=== PATIENT | female | born 1985 | race Caucasian/White ===

== ENCOUNTER 2019-04-06 23:44 | Observation (INO) ==
[2019-04-07] MEDS ORDERED: DUONEB (A & A) INH ONE ×3 (00:09→04:34)
[2019-04-07] MEDS ORDERED: NS 500 ML IV ONE (00:09)
[2019-04-07 02:23] LABS: BASO# 0.03 X1000 (0.0-0.2); BASO% 0.1 % (0.0-0.8); EOS# 0.03 X1000 (0.0-0.7); EOS% 0.1 % (0.0-10.0); HEMATOCRIT 45.1 % (37.0-47.0); HEMOGLOBIN 15.2 g/dL (12.0-16.0); IMM GRAN% 0.4 % (0.0-0.5); LYMPH# 1.03 X1000 (1.2-3.4); LYMPH% 4.4 % (20.5-51.1); MCH 33.6 PG (27-31); MCHC 33.7 g/dL (33-37); MCV 99.6 FL (81-99); MONO# 0.78 X1000 (0.11-0.59); MONO% 3.3 % (1.7-9.3); MPV 9.1 FL (7.4-10.4); NEUT# 21.42 X1000 (1.4-6.5); NEUT% 91.7 % (42.2-75.2); PLT 238 X1000 (130-400); RBC 4.53 XMIL (4.2-5.4); RDW 12.7 % (11.5-14.5); WBC 23.39 X1000 (4.8-10.8)
[2019-04-07 02:53] LABS: AGAP 18; ALBUMIN 4.8 g/dL (3.5-5.0); ALKALINE PHOSPHATASE 50 U/L (32-104); BUN 8 mg/dL (8-22); CALCIUM 9.7 mg/dL (8.8-10.2); CHLORIDE 103 mmol/L (98-107); COSMO 277; CREATININE 0.6 mg/dL (0.5-0.9); ESTIMATED GFR > 60; GLUCOSE 87 mg/dL (70-104); GOT 32 U/L (10-30); GPT 22 U/L (10-36); MAGNESIUM 1.9 mg/dL (1.5-2.7); SODIUM 140 mmol/L (136-145); TCO2 20 mmol/L (25-35); TOTAL PROTEIN 8.1 g/dL (6.3-8.3)
[2019-04-07 03:35] LABS: INFLUENZA A NEGATIVE (NEGATIVE); INFLUENZA B NEGATIVE (NEGATIVE)
[2019-04-07 03:35] LABS: INR 0.86; PROTIME 12.1 Seconds (11.0-16.0)
[2019-04-07 03:36] LABS: PTT 22.4 Seconds (22.3-41.8)
[2019-04-07] MEDS ORDERED: SOLU-MEDROL IV ONE (03:36)
[2019-04-07] MEDS ORDERED: ROCEPHIN 1 GM in NS 50 ML IV ONE (03:36)
[2019-04-07] MEDS ORDERED: NS 1,000 ML IV ONE ×2 (04:42→05:43)
--- NOTE | 2019-04-07 04:42 | PROVIDER DOCUMENTATION ---
This chart was entered by Chasity Solo Scribe, acting as scribe for Ishmael Roblero MD. HPI-Respiratory General - General Chief Complaint: Shortness of Breath Stated Complaint: SOB Time Seen by Provider: 04/07/19 00:05 Source: patient Allergies/Adverse Reactions: Patient Allergies Allergy/AdvReac Type Severity Reaction Status Date / Time No Known Allergies Allergy Verified 04/06/19 23:49 Home Medications: Home Medication List Medication Instructions Recorded Confirmed Last Taken Type [place] Carbon[place] 300 mg PO DAILY 01/14/16 10/07/17 Unknown History Acyclovir [Zovirax] 400 mg PO TID 10/07/17 10/07/17 10/06/17 19:00 History 400mg Alprazolam 1 mg PO BID 10/07/17 10/07/17 10/07/17 19:00 History Bupropion HCl 200 mg PO DAILY 10/07/17 10/07/17 10/06/17 07:00 History 200mg Bupropion [Wellbutrin] 100 mg PO DIRECTED 10/07/17 10/07/17 10/06/17 14:00 History 100mg Gabapentin 300 mg TID 10/07/17 10/07/17 10/06/17 19:00 History 300mg Lamotrigine 25 mg PO HS 10/07/17 10/07/17 10/05/17 19:00 History 25mg Lisdexamfetamine Dimesylate 20 mg PO DAILY 10/07/17 10/07/17 10/06/17 14:00 History [Vyvanse] 20mg Lisdexamfetamine Dimesylate 50 mg PO DAILY 10/07/17 10/07/17 10/06/17 09:00 Hi story [Vyvanse] 50mg [place] Carbonate 10/07/17 10/07/17 Unknown History Tramadol HCl 50 mg PO TID PRN 10/07/17 10/07/17 10/06/17 19:00 History 50mg Trazodone HCl 50 mg PO HS 10/07/17 10/07/17 Unknown History Cephalexin [Keflex] 500 mg PO 4XDAY 3 Days #12 capsule 10/08/17 Unknown Rx Ibuprofen 600 mg PO Q6H PRN PRN 30 Days #60 10/08/17 Unknown Rx tablet Oxycodone/APAP 10 mg/325 mg 1 each PO Q4H PRN PRN #40 tablet 10/08/17 Unknown Rx [Percocet-10] Promethazine [Phenergan] 25 mg PO Q6H PRN PRN 10 Days #20 10/08/17 Unknown Rx tablet Methylprednisolone [Medrol Dosepak] 4 mg PO DIRECTED #1 pkg 01/17/18 Unknown Rx Fluticasone 50 Mcg Nasal [place] 1 spray INTRANASAL DAILY #1 bottle 12/18/18 Unknown Rx [Flonase] Loratadine/Pse E.r. 24 Hr 1 ea PO DAILY #20 tab 12/18/18 Unknown Rx [Claritin-D 24 Hr] Methylprednisolone [Medrol Dosepak] 4 mg PO DIRECTED #1 pkg 12/18/18 Unknown Rx Naproxen Sodium [Anaprox Ds] 550 mg PO Q12H PRN PRN #20 tab 12/18/18 Unknown Rx - History of Present Illness-Resp Nature of Presenting Problem: Pt is 33/F presenting to ED w/ SOB and cough that is painful since about 3pm today. Pt sts that she was smoking her last cigarette at work at onset. Severity in ED: reports: moderate Onset/Duration: reports: other (8 hrs ago) Timing: reports: still present Exposure: reports: unknown cause Cough Quality/Degree: reports: moderate Episode Frequency: no prior episodes Modifying Factors: improves with: nothing Associated Symptoms: reports: shortness of breath, short of breath, wheezing. denies: nasal drainage Similar Symptoms Previously?: No Recently seen or treated by another doctor?: No Review of Systems - Adult - REVIEW OF SYSTEMS - ADULT Constitutional: reports: no symptoms reported. denies: chills, fever Eyes: reports: no symptoms reported Ears, Nose, Mouth & Throat: reports: no symptoms reported Cardiovascular: reports: no symptoms reported. denies: chest pain Respiratory: reports: cough, shortness of breath, wheezing Gastrointestinal: reports: no symptoms reported. denies: abdominal pain, diarrhea, nausea, vomiting Genitourinary: reports: no symptoms reported Musculoskeletal: reports: no symptoms reported Integumentary: reports: no symptoms reported Neurological: reports: no symptoms reported. denies: dizziness/vertigo, headache/migraines Psychiatric: reports: no symptoms reported Endocrine: reports: no symptoms reported Hematologic/Lymphatic: reports: no symptoms reported Allergic/Immunologic: reports: no symptoms reported All Other Systems: Reviewed and Negative Past History - Adult - PAST MEDICAL HISTORY-ADULT Review of Records: reports: Old Records Reviewed, Nursing Assessment Review, Medications Reviewed, Social history reviewed & non-contributory. Major Childhood Illnesses: reports: denies history Cardiovascular: reports: denies history Respiratory: reports: denies history Gastrointestinal: reports: denies history Obstetrical/Gynecological: reports: denies history Genitourinary: reports: denies history Musculoskeletal: reports: chronic pain Neurological: reports: denies history Endocrine/Immune: reports: denies history Other Conditions: reports: MRSA - PRIOR SURGERIES/PROCEDURES Surgical/Procedure History: reports: cholecystectomy, BTL - IMMUNIZATION STATUS Childhood Immunizations: See Nurse Assessment Flu Vaccine: See Nurse Assessment - FAMILY HISTORY Family History: reviewed, not pertinent - SOCIAL HISTORY Smoking: cigarettes Provider spent 3-5 mins advising pt. on dangers of tobacco.: Discussed manners to quit use, and f/u contacts for add'l counseling. Substance Use: none/never Alcohol Use Frequency: sober (former use) Living Situation: family Physical Exam-General - PHYSICAL EXAM-ADULT Initial Vital Signs Reviewed: No - CONSTITUTIONAL General Appearance: appears well, alert, mild distress - EYES Eyes: PERRL/EOMI, pink conjunctivae - HEAD, EARS, NOSE, MOUTH & THROAT HENMT: moist mucous membranes - NECK Neck: non-tender, full range of motion, supple, normal inspection - RESPIRATORY Respiratory: wheezing, increased rate (40) - CARDIOVASCULAR Cardiovascular: tachycardia (120) - GASTROINTESTINAL (ABDOMEN) Abdominal Exam: non tender, soft - MUSCULOSKELETAL Back Exam: normal inspection Extremity: normal range of motion, non-tender, normal gait, normal inspection - SKIN Integumentary: normal color, warm/dry - NEUROLOGIC Neurologic: grossly normal - PSYCHIATRIC Psych/Mental Status: normal mood/affect, normal thought content, normal thought process, oriented x 3 - HEART Score HEART Score: History: Slightly Suspicious HEART Score: Age: < or = 45 Years HEART Score: Risk Factors for Atherosclerotic Disease: No Risk Factors Known HEART Score: Troponin: < or = Normal Limit Progress - PLAN OF CARE/RESULTS Progress/Plan/Lab Results: Vital Signs - 8 hr 04/06/19 23:47 04/07/19 01:10 Temperature 98.3 F Pulse Rate 120 H 108 H Respiratory Rate 40 H 24 Blood Pressure 110/68 O2 Sat by Pulse Oximetry 94 L 100 Laboratory Results - last 24 hr 04/07/19 04/07/19 04/07/19 01:08 01:08 01:08 WBC 23.39 H RBC 4.53 Hgb 15.2 Hct 45.1 MCV 99.6 H MCH 33.6 H MCHC 33.7 RDW Std Deviation 12.7 Plt Count 238 MPV 9.1 Immature Gran % (Auto) 0.4 Neut % (Auto) 91.7 H Lymph % (Auto) 4.4 L [place] % (Auto) 3.3 Eos % (Auto) 0.1 Baso % (Auto) 0.1 Immature Gran # (Auto) 0.10 H Neut # (Auto) 21.42 H Lymph # (Auto) 1.03 L [place] # (Auto) 0.78 H Eos # (Auto) 0.03 Baso # (Auto) 0.03 PT INR PTT (Actin FS) D-Dimer, Quantitative Sodium 140 Potassium 4.0 Chloride 103 Carbon Dioxide 20 L Anion Gap 18 BUN 8 Creatinine 0.6 Estimated GFR/1.73 m2 > 60 BUN/Creatinine Ratio 13 Glucose 87 Calculated Osmolality 277 Calcium 9.7 Magnesium 1.9 Total Bilirubin 0.70 AST 32 H ALT 22 Alkaline Phosphatase 50 Troponin T < 0.010 Total Protein 8.1 Albumin 4.8 Globulin 3.0 Albumin/Globulin Ratio 1.0 Plasma Lactate Influenza A (Rapid) Influenza B (Rapid) 04/07/19 04/07/19 04/07/19 02:55 02:59 03:04 WBC RBC Hgb Hct MCV MCH MCHC RDW Std Deviation Plt Count MPV Immature Gran % (Auto) Neut % (Auto) Lymph % (Auto) [place] % (Auto) Eos % (Auto) Baso % (Auto) Immature Gran # (Auto) Neut # (Auto) Lymph # (Auto) [place] # (Auto) Eos # (Auto) Baso # (Auto) PT 12.1 INR 0.86 PTT (Actin FS) 22.4 D-Dimer, Quantitative 0.45 Sodium Potassium Chloride Carbon Dioxide Anion Gap BUN Creatinine Estimated GFR/1.73 m2 BUN/Creatinine Ratio Glucose Calculated Osmolality Calcium Magnesium Total Bilirubin AST ALT Alkaline Phosphatase Troponin T Total Protein Albumin Globulin Albumin/Globulin Ratio Plasma Lactate 1.2 Influenza A (Rapid) NEGATIVE Influenza B (Rapid) NEGATIVE Orders Category Date Time Status Cardiac Monitoring DIRECTED Care 04/07/19 00:09 Active Saline Loc NOW Care 04/07/19 00:10 Active CHEST-2 VIEWS [RAD] Stat Exams 04/07/19 00:11 Taken BLOOD CULTURE [BLDCUL] Stat Lab 04/07/19 00:10 Ordered CBC WITH ELECTRONIC DIFF [HEME] Stat Lab 04/07/19 01:08 Completed COMPREHENSIVE METABOLIC PANEL [CHEM] Stat Lab 04/07/19 01:08 Completed D-DIMER [COAG] Stat Lab 04/07/19 03:[address] Stat Lab 04/07/19 02:55 Completed LACTATE, PLASMA [CHEM] Stat Lab 04/07/19 02:59 Completed MAGNESIUM [CHEM] Stat Lab 04/07/19 01:08 Completed PROTIME WITH INR [COAG] Stat Lab 04/07/19 03:04 Completed PTT [COAG] Stat Lab 04/07/19 03:04 Completed TROPONIN T Stat Lab 04/07/19 01:[address] W/POSS RFLX CULT [URINALYSIS] Stat Lab 04/07/19 00:11 Uncollected URINE DRUG SCREEN PL Stat Lab 04/07/19 00:11 Uncollected 0.9% Sodium Chloride Inj [Ns] 500 ml Med 04/07/19 00:09 Discontinued IV 999 mls/hr Albuterol 2.5MG/Ipratrop 0.5MG [Duoneb (A & A)] Med 04/07/19 00:09 Discontinued 3 ml INH NOW ONE Albuterol 2.5MG/Ipratrop 0.5MG [Duoneb (A & A)] Med 04/07/19 01:09 Discont inued 3 ml INH NOW ONE CefTRIAXONE [Rocephin] 1 gm Med 04/07/19 03:36 Discontinued 0.9% Sodium Chloride Inj [Ns] 50 ml IV NOW Methylprednisolone Sod Succ [Solu-Medrol] Med 04/07/19 03:36 Discontinued 125 mg IV NOW ONE Aerosol Treatments Routine Oth 04/07/19 00:12 Completed Aerosol Treatments Routine Oth 04/07/19 01:09 Completed Aerosol Treatments Stat Oth 04/07/19 00:12 Completed Aerosol Treatments Stat Oth 04/07/19 01:09 Completed EKG [EKG] Stat Ther 04/07/19 00:10 Ordered Result Diagrams: 04/07/19 01:08 04/07/19 01:08 - REASSESSMENT Reassessment #1 Time Reassessed: 03:40 Status: improving (breathing easily, tachypnea resolved, not Hypoxic. still tachycardic, high leukocytosis) - EKG 1 Time of EKG reading by physician:: 04:41 EKG Read and Signed by:: Ishmael Roblero EKG Interpretation (*Must complete 3 of following elements*): Normal Rate: 100 Rhythm: sinus [place]: normal QRS: normal MI Interval: normal ST Wave: normal (left atrial enlargement.) - CONSULTS/PCP/HOSPITALIST Notification #1 *Consult/PCP/Hospitalist*: MATEO FOR DR ELAM Time Discussed: 03:49 Consult Disposition: Admit Departure - Departure Date of Disposition Decision: 04/07/19 Time of Disposition Decision: 04:29 DIAGNOSIS: Bronchitis, SOB (shortness of breath), Leukocytosis, Tachycardia Disposition: ADMITTED INPATIENT 09 Certified Medical Emergency: Emergent Condition: Fair Referrals and Follow-Ups: None,PCP [Primary Care Provider] - - Critical Care Note This patient required my direct & personal management of CC.: No Attestation - Physician/ BETTINA Attestation Patient care was provided by Advanced Practice Provider:: No The physician spent face to face time with patient:: Yes Advanced Practice Provider documentation review:: Supervising physician onsite and consulted in the evaluation and care of this patient. The physician did have a face to face encounter with the patient. This chart was documented by the indicated scribe, (Chasity Solo, Roberto) and accurately reflects the services I performed and decisions made by , Ishmael Roblero MD, as attested by the provider's signature.
[2019-04-07] MEDS ORDERED: ZOFRAN IV PRN (05:43)
[2019-04-07] MEDS ORDERED: TYLENOL PO PRN (05:43)
[2019-04-07 06:29] LABS: UR AMPHETAMINES QUAL PRESUMPTIVE POSITIVE (NONE DETECT); UR BARBITUATES QUAL NONE DETECTED (NONE DETECT); UR BENZODIAZEPIN QUAL NONE DETECTED (NONE DETECT); UR CANNABINOIDS QUAL NONE DETECTED (NONE DETECT); UR COCAINE QUAL PRESUMPTIVE POSITIVE (NONE DETECT); UR METHADONE QUAL NONE DETECTED (NONE DETECT); UR METHAMPHETAMINE QUAL NONE DETECTED (NONE DETECT); UR OPIATES QUAL PRESUMPTIVE POSITIVE (NONE DETECT); UR OXYCODONE QUAL NONE DETECTED (NONE DETECT); UR PCP QUAL NONE DETECTED (NONE DETECT); UR PROPOXYPHENE QUAL NONE DETECTED (NONE DETECT); UR TCA QUAL NONE DETECTED (NONE DETECT)
[2019-04-07 06:30] LABS: BILIRUBIN URINE NEGATIVE (NEGATIVE); BLOOD URINE NEGATIVE (NEGATIVE); CLARITY CLEAR (CLEAR); COLOR YELLOW; GLUCOSE URINE NEGATIVE (NEGATIVE); KETONE URINE 2+(Moderate) mg/dL (NEGATIVE); LEUKOCYTES URINE TRACE (NEGATIVE); NITRITE URINE NEGATIVE (NEGATIVE); PROTEIN URINE NEGATIVE (NEGATIVE); UROBILINOGEN URINE NORMAL
[2019-04-07 06:41] LABS: URINE BACTERIA 1+ /HFP; URINE CAST NONE SEEN /LPF; URINE CRYSTAL NONE SEEN /HPF; URINE EPITHELIAL CELLS >10 /HPF (<10); URINE RBC <10 /HPF (<10); URINE SOURCE CLEAN CATCH; URINE WBC <10 /HPF (<10); URINE YEAST NONE SEEN /HPF
[2019-04-07] MEDS ORDERED: DUONEB (A & A) INH SCH ×2 (07:30)
[2019-04-07 08:03] VITALS: BP 126/78
--- NOTE | 2019-04-07 08:14 | Diag Imaging Result Doc PS360 ---
EXAM: CHEST-2 VIEWS INDICATION: short of breath TECHNIQUE: 2 views COMPARISON: 11/08/2017 FINDINGS: The lungs are grossly clear. There is no discrete pleural fluid collection or pneumothorax. The cardiomediastinal silhouette and central vasculature are grossly unremarkable. IMPRESSION: No evidence of acute pathology by plain radiograph. Electronically signed by Deshawn Rincon 04/07/2019 8:11 AM
--- NOTE | 2019-04-07 11:22 | HISTORY AND PHYSICAL ---
PRIMARY CARE PHYSICIAN: Dr. Mishra. CHIEF COMPLAINT: Shortness of breath. HISTORY OF PRESENT ILLNESS: Ms. Xie is a 33-year-old female who states that she has been short of breath since 3 p.m. yesterday. She also has some complaints of cough, chills. She has had some diarrhea, some vomiting and some nausea. Denies any blood with her vomit or diarrhea. States that she may have had a fever; however, she does not know what the fever has been. The patient is lying in the bed at this present time. She appears to be hyperventilating while I am talking with her. I asked if she could take some deep breaths. She stated that she could not take deep breaths. Asked if she could stop breathing for a second and try to take a deep breath. She stated that she could not do that. The patient appears to be a little anxious at this present time. The patient does state that she has a history of depression, ADHD, bipolar. She does admit to drinking vodka 3 mixed drinks a day and occasional cocaine abuse. She also smokes a pack and half of cigarettes daily. She became short of breath last p.m., decided to come to the ER while she was smoking a cigarette. She does not know why she is short of breath at this time. She is not producing any mucus with this cough. She did not cough while I was in the room. Lung sounds do appear to be clear at this time. Vital signs: O2 saturation is 99% on room air. Pulse rate is 95 normal sinus rhythm at this time. The patient was sleeping when I entered the room and did appear to be breathing fine while she was sleeping. However, when she did wake up, she did become short of breath when I entered the room. The patient is not complaining of any pain at this time; however, states that she does have chronic pain to her neck and back from some type of disk problem and takes Percocet 10s for that. Home medication list is not reconciled in the computer. However, patient does state she does take Vyvanse daily for her ADHD and she is supposed to be on medications for her bipolar, but she does not always take them like she is supposed to. PAST MEDICAL HISTORY: Depression, ADHD, bipolar, bulging disk. PAST SURGICAL HISTORY: [place] placed to the leg, cholecystectomy, tubal ligation. FAMILY HISTORY: Mother has lung cancer. 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 She admits to occasional cocaine abuse. States she drinks 3 mixed drinks of vodka daily and occasional beer daily. She denies any other drug abuse. ALLERGIES: No known drug allergies. HOME MEDICATIONS: Home medication reconciliation has not been performed at this time. LABORATORY AND DIAGNOSTICS: White blood cell count 23.39, red blood cell count 4.53, hemoglobin 15.2, hematocrit 45.1, platelet count is 239,000. PT 12.1, INR 0.86, PTT 22.4. D-dimer 0.45. Sodium 140, potassium 4.0, chloride 103, carbon dioxide 20, anion gap 18, BUN is 8, creatinine is 0.6, GFR is greater than 60, glucose 87, calcium 9.7. Magnesium 1.9. Bilirubin 0.7, AST is 32, ALT is 22, alkaline phosphatase is 50. Troponin is less than 0.01. Plasma lactate 1.2. Urinalysis positive 2+ for ketones, shows trace white blood cell count, 1+ bacteria. Toxicology is positive for opiates, amphetamines, and cocaine. REVIEW OF SYSTEMS: A 12 point review of systems has been obtained and all were negative except what is stated above in HPI. PHYSICAL EXAMINATION: VITAL SIGNS: Temperature 98.3, pulse rate 95, respiratory rate 18, blood pressure 126/78, O2 saturation 99% on room air. Weight 183.5, height 6 feet 2 inches. GENERAL: This is a 33-year-old female. She is in no acute distress. She is well nourished and well developed. HEENT: Atraumatic, normocephalic. Pupils equal, round, reactive to light. Sclerae is anicteric. Mucous membranes are moist. NECK: Supple. No lymphadenopathy. Trachea is midline. No JVD. No thyromegaly. No bruits. CARDIOVASCULAR: Regular rate and rhythm. No murmurs, gallops, or rubs appreciated. RESPIRATORY: Lung sounds are clear with equal chest excursion. Respirations are short and shallow. She has tachypnea. GASTROINTESTINAL: Abdomen is soft, nontender, nondistended. Bowel sounds are present. NEUROLOGIC: Cranial nerves 2-12 are intact. The patient is awake, alert, and oriented. Able to follow all commands. MUSCULOSKELETAL: Full distal strength noted. No abnormalities, no deformities. EXTREMITIES: No clubbing, no cyanosis, no edema. DP and PT pulses are present and palpable. SKIN: Warm, dry, intact. No rashes. No bruises. ASSESSMENT: 1. Shortness of breath. We have admitted this patient to the medical floor, placed this patient on the monitor. We will observe her overnight. The patient appears to be hyperventilating, appears to be somewhat anxiety-induced. 2. Leukocytosis. The patient was given a dose of Rocephin in the ER. The patient does have 1+ bacteria in the urine, possibly could be urinary tract infection. The patient is not complaining of any urinary symptoms. Chest x-ray is clear. We will replace her with IV fluid hydration. 3. Anxiety and depression. The patient takes medications at home will continue once home medication reconciliation performed. 4. Bipolar. Patient is on medications at home will continue once home medication reconciliation performed. 5. Alcohol and drug abuse. I have discussed with the patient cessation information and not mixing her medications with cocaine as this is not good for the patient and this could be increasing her anxiety. PLAN: We have admitted this patient to the medical floor for overnight observation. We are given her IV fluid hydration. She was given a dose of antibiotics in the ER for her leukocytosis. We will monitor this patient. We will provide her with breathing treatments and oxygen per protocol. I have discussed her abstaining from drug and alcohol abuse. All other further treatment pending hospital course and lab data. Dictated by AALIYAH Pisano for Esther Fisher MD cc: MD Jett Clark MD MTDD
--- NOTE | 2019-04-07 11:28 | HISTORY AND PHYSICAL ---
ADDENDUM: I saw the patient [id number] and fully agree with the assessment and plan of nurse practitioner, Agnelica Gipson. This is a 33-year-old lady who has been admitted with dyspnea and bipolar disorder. She seems clinically stable, and therefore we are planning to discharge her home today. cc: Esther Fisher MD
--- NOTE | 2019-04-07 11:48 | EKG Report ---
Test Performed on : 04/07/2019 04:38:33 AM Test Reason : sob Blood Pressure : / mmHG Vent. Rate : 100 BPM Atrial Rate : 100 BPM P-R Int : 138 ms QRS Dur : 078 ms QT Int : 336 ms P-R-T Axes : 064 063 056 degrees QTc Int : 433 ms Normal sinus rhythm. Possible Left atrial enlargement Borderline ECG No previous ECGs available Unconfirmed Result
--- NOTE | 2019-04-07 13:24 | DISCHARGE SUMMARY ---
ADMISSION DATE: 04/07/2019 DISCHARGE DATE: 04/07/2019 DISCHARGE DIAGNOSIS: 1. Dyspnea that is functional. 2. Leukocytosis secondary to systemic steroids. 3. Bipolar disorder. 4. Substance abuse. HOSPITAL COURSE: This is a 33-year-old lady who was admitted to the hospital through the emergency room after she presented there with dyspnea. She was also having tachycardia, but no other issues. Her lab work showed a WBC count of 23.39, but I attributed that to steroid intake. She was advised to follow up with her PCP and try to cut off most of these medications that she is taking. I do not believe she needs opioid analgesics and steroids. She does have toxicology positive for amphetamines and cocaine. She takes Vyvanse and I am not sure if she needs that. I have strongly recommended her to follow up with her PCP and address these issues. Her overall condition has been stable and therefore, we are going to discharge her home today. CONDITION: Stable. DISPOSITION: Home. cc: Esther Fisher MD MTDD
== END 2019-04-07 12:28 | disposition home or self-care (01) ==
LOC: P.ED 23:44 → INTOOBSV 04-07 05:15 → P.MEDSURG 04-07 05:15 → SUATTDRO 04-07 05:15
PROVIDERS: ATTEND Internal Medicine